=== PATIENT | female | born 1990 | race Caucasian/White ===

== ENCOUNTER 2018-10-25 04:52 | Emergency (ER) | payer SELFPAY ==
[2018-10-25] MEDS ORDERED: ACETAMINOPHEN 325 MG TABLET PO ONE (04:57)
--- NOTE | 2018-10-25 06:25 | RADIOLOGY REPORT (SQ) ---
EXAM DESCRIPTION: XR HAND 3 OR MORE VIEWS COMPLETED DATE/TME: 10/25/2018 00:00 CLINICAL HISTORY: 28 years Female, crush injury COMPARISON: None. Findings: Known soft tissue injury; no radioopaque foreign body. Bones, joints, and soft tissues of the RIGHT XR HAND 3 VIEWS appear otherwise intact. IMPRESSION: Soft tissue injury; else, no acute findings. .
--- NOTE | 2018-10-25 06:37 | ER Document Report ---
ED Hand/Wrist Injury - General Chief Complaint: Finger Injury Stated Complaint: HAND INJURY Time Seen by Provider: 10/25/18 06:27 Mode of Arrival: Ambulatory Information source: Patient Notes: Patient states that a metal bed frame fell onto her right hand a few hours ago. Patient notes bruising and swelling to the hand. She came in for an evaluation. She denies any numbness or tingling. Pain is worse with movement of the fingers. No alleviating factors. Did not take medication prior to arrival. TRAVEL OUTSIDE OF THE [place] IN LAST 30 DAYS: No - HPI Injury to: Hand Onset: This morning Where: Home Timing: Constant Quality of pain: Dull Severity: Mild Context: Crush - Related Data Allergies/Adverse Reactions: baclofen Allergy (Verified 10/25/18 04:53) Past Medical History - General Information source: Patient - Social History Smoking Status: Current Every Day Smoker Family History: Reviewed & Not Pertinent Patient has suicidal ideation: No Patient has homicidal ideation: No Renal/ Medical History: Denies: Hx Peritoneal Dialysis Review of Systems - Review of Systems Constitutional: No symptoms reported EENT: No symptoms reported Cardiovascular: No symptoms reported Respiratory: No symptoms reported Gastrointestinal: No symptoms reported Genitourinary: No symptoms reported Female Genitourinary: No symptoms reported Musculoskeletal: Other - hand and finger pain Skin: Other - contusion Hematologic/Lymphatic: No symptoms reported Neurological/Psychological: No symptoms reported -: Yes All other systems reviewed and negative Physical Exam - Vital signs Vitals: Temp Pulse Resp BP Pulse Ox 97.6 F 102 H 20 146/101 H 98 10/25/18 05:02 10/25/18 05:02 10/25/18 05:02 10/25/18 05:02 10/25/18 05:02 - Notes Notes: PHYSICAL EXAMINATION: GENERAL: Well-appearing, well-nourished and in no acute distress. HEAD: Atraumatic, normocephalic. EYES: Pupils equal round and reactive to light, extraocular movements intact, conjunctiva are normal. ENT: Nares patent, oropharynx clear without exudates. Moist mucous membranes. NECK: Normal range of motion, supple without lymphadenopathy LUNGS: Breath sounds clear to auscultation bilaterally and equal. No wheezes rales or rhonchi. HEART: Regular rate and rhythm without murmurs ABDOMEN: Soft, nontender, nondistended abdomen. No guarding, no rebound. No masses appreciated. Female : deferred Musculoskeletal: Contusion to the 2nd,3rd,4th fingers of the Right hand. Intact sensation. 2+ radial pulse. Full range of motion of the R hand and fingers despite pain. Able to make a fist and extend fingers. Minimal swelling compared to other hand. NEUROLOGICAL: Cranial nerves grossly intact. Normal speech, normal gait. Normal sensory, motor exams PSYCH: Normal mood, normal affect. SKIN: Warm, Dry, normal turgor, no rashes or lesions noted. Course - Re-evaluation Re-evalutation: 10/25/18 06:34 X-ray obtained. No fractures appreciated. Exam is notable for contusions to the second, third, fourth fingers. Minimal swelling. Patient is neurovascularly intact. I will refer patient to orthopedics for reevaluation this week. I instructed the patient to take [id number] medication as needed for pain, to return to the emergency department if she begins having worsening pain, worsening swelling, numbness or tingling. I discussed with the patient that increased pain/numbness/tingling could mean that the nerves and blood vessels are being compressed and result in loss of function or the digit. Patient understands the importance of prompt follow up for a re-evaluation. Patient is agreeable with plan of care. - Vital Signs Vital signs: Temp Pulse Resp BP Pulse Ox 97.6 F 102 H 20 146/101 H 98 10/25/18 05:02 10/25/18 05:02 10/25/18 05:02 10/25/18 05:02 10/25/18 05:02 Discharge - Discharge Clinical Impression: Contusion, fingers Qualifiers: Encounter type: initial encounter Finger: middle finger Damage to nail status: without damage Laterality: right Qualified Code(s): S60.031A - Contusion of right middle finger without damage to nail, initial encounter Condition: Good Disposition: HOME, SELF-CARE Instructions: Contusion ([facility]) Additional Instructions: Take [id number] medication as needed for symptom relief. Return to the emergency department immediately if he began having worsening swelling, worsening pain, numbness, tingling. Follow-up with the orthopedic surgeon or family physician for reevaluation this week. Referrals: GARTH LITTLEJOHN MD [ACTIVE STAFF] - Follow up as needed KELLIE VARGAS MD [ACTIVE STAFF] - Follow up as needed
[2018-10-25 07:16] VITALS: BP 116/47
== END 2018-10-25 07:17 | disposition home or self-care (01) ==
LOC: ER 04:52
DX: S60.031A Contusion of right middle finger without damage to nail, initial encounter (principal); S60.021A Contusion of right index finger without damage to nail, initial encounter; S60.041A Contusion of right ring finger without damage to nail, initial encounter; W20.8XXA Other cause of strike by thrown, projected or falling object, initial encounter; Y92.009 Unspecified place in unspecified non-institutional (private) residence as the place of occurrence of the external cause; Z88.8 Allergy status to other drugs, medicaments and biological substances; F17.200 Nicotine dependence, unspecified, uncomplicated
CPT/HCPCS: 99283